=== PATIENT | female | born 1995 | race Two or more races ===

== ENCOUNTER 2025-07-18 16:12 | Emergency (ER) | payer OTHER ==
[~2025-07-18] VITALS: Ht 167.6 cm; Wt 44.5 kg
--- NOTE | 2025-07-18 16:50 | ED.PDOC ---
Musculoskeletal HPI Comments A 30 YEAR OLD FEMALE PRESENTS TO THE ED WITH COMPLAINT OF RIGHT SHOULDER PAIN. 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 PATIENT REPORTS SHE IS NOW EXPERIENCING RIGHT SHOULDER PAIN THAT IS WORSE WITH MOVEMENT. PATIENT DENIES FEVER, CHILLS, SHORTNESS OF BREATH, CHEST PAIN, ABDOMINAL PAIN, NAUSEA, VOMITING, HEADACHE, OR OTHER COMPLAINTS. NO OTHER SYMPTOMS OR MODIFYING FACTORS AT THIS TIME. PATIENT IS ALERT, ORIENTED X 4, AND HAS STEADY GAIT. Chief Complaint: Upper Extremity Time Seen by MD: 16:23 Reviewed Notes: Nurses Notes, Medications, Allergies Allergies: Coded Allergies: NO KNOWN ALLERGIES (Unverified , 07/18/25) Information Source: Patient Mode of Arrival: Ambulatory Location: Right Extremity Location: Shoulder Timing: Hours Prehospital treatment: None Severity: Moderate Able to Move Extremity: Yes Bear Weight: Fully Pain: Moderate Mechanism: Lifting Onset of Symptoms: After Exercise Symptoms: Pain DVT Risk Factors: NONE Last Tetanus: Unknown Associated signs and symptoms: Shoulder pain Past Medical History PAST MEDICAL HISTORY: Denies Surgical History: Denies all surgeries 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 Family History Family History: Reviewed,noncontributory to illness Social History Smoker: Non-Smoker Alcohol: Denies ETOH Use Drugs: Denies Drug Use Lives In: Home Constitutional: denies: chills, diaphoresis, fatigue, fever, malaise, sweats, weakness, others EENTM: denies: blurred vision, double vision, ear bleeding, ear discharge, ear drainage, ear pain, ear ringing, eye pain, eye redness, hearing loss, mouth pain, mouth swelling, nasal discharge, nose bleeding, nose congestion, nose pain, photophobia, tearing, throat pain, throat swelling, voice changes, others Respiratory: denies: cough, hemoptysis, orthopnea, SOB at rest, shortness of breath, SOB with excertion, stridor, wheezing, others Cardiovascular: denies: chest pain, dizzy spells, diaphoresis, Dyspnea on exertion, edema, irregular heart beat, left arm pain, lightheadedness, palpitations, PND, syncope, others Gastrointestinal: denies: abdomen distended, abdominal pain, blood streaked bowels, constipated, diarrhea, dysphagia, difficulty swallowing, hematemesis, melena, nausea, poor appetite, poor fluid intake, rectal bleeding, rectal pain, vomiting, others Genitourinary: denies: abnormal vagina bleeding, burning, dyspareunia, dysuria, flank pain, frequency, hematuria, incontinence, pain, , vagina discharge, urgency, others Neurological: denies: dizziness, fainting, headache, left sided numbness, left sided weakness, numbness, paresthesia, pre-existing deficit, right sided numbness, right sided weakness, seizure, speech problems, tingling, tremors, wea kness, others Musculoskeletal: reports: joint pain, muscle pain, others (RIGHT SHOULDER PAIN); denies: back pain, gout, joint swelling, muscle stiffness, neck pain Integumetry: denies: bruises, change in color, change in hair/nails, dryness, laceration, lesions, lumps, rash, wounds, others Allergic/Immunocompromised: denies: Difficulty Healing, Frequent Infections, Hives, Itching, others Hematologic/Lymphatic: denies: anemia, blood clots, easy bleeding, easy bruising, swollen glands, others Endocrine: denies: excessive hunger, excessive sweating, excessive thirst, excessive urination, flushing, intolerance to cold, intolerance to heat, unexplained weight gain, unexplained weight loss, others Psychiatric: denies: anxiety, bipolar disorder, depression, hopeless, panic disorder, schizophrenia, sleepless, suicidal, others All Other Systems: Reviewed and Negative Physical Exam General Appearance: No Apparent Distress, Normal HEENT: Normal ENT Inspection, PERRL/EOMI, Pharynx Normal, TMs Normal Neck: Full Range of Motion, Non-Tender, Normal, Normal Inspection Respiratory: Chest Non-Tender, Lungs Clear, No Accessory Muscle Use, No Respiratory Distress, Normal Breath Sounds Cardiovascular: No Edema, No JVD, No Murmur, No Gallop, Normal Peripheral Pulses, Regular Rate/Rhythm Breast Exam: Deferred Gastrointestinal: No Organomegaly, Non Tender, No Pulsatile Mass, Normal Bowel Sounds, Soft Genitalia: Deferred Pelvic: Deferred Rectal: Deferred Extremities: Decreased range of motion (SLIGHTLY), No calf tenderness, Normal capillary refill, Normal inspection, No pedal edema, Tender (ON RIGHT SHOULDER, NO BONY TENDERNESS, SWELLING AND DEFORMITY. ) Musculoskeletal : Apperance: Normal Neurologic: Alert, differential specialist II-XII nml as Tested, No Motor Deficits, Normal Affect, Normal Mood, No Sensory Deficits Cerebellar Function: Normal Reflexes: Normal Skin: Dry, Normal Color, Warm Peripheral Pulses: 2+ carotid (R), 2+ carotid (L), 2+ dorsalis pedis (R), 2+ dorsalis pedis (L) Lymphatic: No Adenopathy Was a procedure done? Was a procedure done?: No Differential Diagnosis EXT Differential Diagnosis: Fracture, Sprain, Dislocation, Contusion, Strain, Bursitis X-Ray, Labs, Meds, VS Vital Signs Date Time Temp Pulse Resp B/P (MAP) Pulse Ox O2 Delivery O2 Flow Rate FiO2 07/18/25 16:19 98.1 77 16 117/69 97 98.1 Current Medications Medications (Trade) Dose Ordered Sig/[place] Route Start Time Stop Time Status Last Admin Acetaminophen (Tylenol Tablet Or Capsule) 1,000 mg ONCE ONCE PO 07/18/25 17:00 07/18/25 17:01 DC 07/18/25 17:10 CLINICAL INDICATION: PAIN POST LIFTING TECHNIQUE: 4 view XY R SHOULDER 2+ VIEW XRAY Comparison: None FINDINGS/IMPRESSION: : There is no evidence of acute fracture or dislocation. Soft tissues are unremarkable. ATED BY: MAX LEONARDO MD DICTATED DATE/TIME: 07/18/251700 SIGNED BY: MAX LEONARDO MD SIGNED DATE/TIME: 07/18/251700 CC: X-Ray, Labs, Meds, VS Comment EXTERNAL MEDICAL RECORDS REVIEWED: [NONE] INDEPENDENT HISTORIANS: [NONE] SOCIAL DETERMINANTS OF HEALTH: [NONE] LABS ORDERED: NONE REVIEWED AND INTERPRETED RESULTS: NONE IMAGING ORDERED: XR SHOULDER RT TREATMENTS ORDERED: TYLENOL 1G PO PROCEDURES PERFORMED: NONE CRITICAL CARE TIME: NONE I HAVE DISCUSSED THE PATIENT WITH THE ATTENDING PHYSICIAN DR. HILL AND HE AGREES WITH THE PATIENT'S PLAN OF CARE AND DISPOSITION. BASED ON HISTORY OF PRESENT ILLNESS, AND PHYSICAL EXAM, PATIENT WILL BE DISCHARGED HOME. DISCUSSED PLAN FOR DISCHARGE HOME WITH RX [TYLENOL 650MG]. MEDICATION WARNINGS GIVEN. SHARED DECISION MAKING: DISCUSSED WITH PATIENT THAT THEIR WORKUP WAS NORMAL. PATIENT INSTRUCTED TO FOLLOW UP WITH PRIMARY CARE PROVIDER IN 1-2 DAYS FOR RE- EVALUATION OF SYMPTOMS. PATIENT VERBALIZES UNDERSTANDING TO RETURN TO ED FOR NEW OR WORSENING SYMPTOMS OR IF FOLLOW UP WITH PCP CANNOT BE OBTAINED. PATIENT FEELS COMFORTABLE GOING HOME AT THIS TIME. ALL QUESTIONS ADDRESSED AT TIME OF DISCHARGE. Images Reviewed?: Images reviewed and evaluated by me Time of 1ST Reevaluation: 17:14 Reevaluation 1ST: Improved Patient Education/Counseling: Diagnosis, Treatment, Need For Follow Up Family Education/Counseling: Diagnosis, Treatment, Need For Follow Up Medical Screening: No EMC Exist At This Time Departure 1 Departure Time of Disposition: 17:14 Impression: Primary Impression: Muscle strain of right shoulder Qualified Codes: S46.911A - Strain of unspecified muscle, fascia and tendon at shoulder and upper arm level, right arm, initial encounter Disposition: HOME / SELF CARE / HOMELESS Condition: Stable Additional Instructions: FOLLOW-UP WITH PCP IN 1 TO 2 DAYS. TAKE MEDICATIONS PRESCRIBED. RETURN TO ED FOR ANY NEW OR WORSENING SYMPTOMS. e-Prescriptions Acetaminophen (Tylenol Extra Strength Fo) 500 Mg Tab 650 MG PO TID, #30 TAB Prov: GRAY HATCH 07/18/25 Discharged With: Self, Relative Critical Care Note Critical Care Time?: No Stability Stability form required: No I personally scribed for GRAY HATCH ([email or web address]) on 07/18/25 at 16:50. Electronically submitted by Ming Ignacio ([employer]). I personally scribed for GRAY HATCH ([email or web address]) on 07/18/25 at 16:59. Electronically submitted by Ming Ignacio ([employer]). I personally scribed for GRAY HATCH ([email or web address]) on 07/18/25 at 17:08. Electronically submitted by Ming Ignacio ([employer]). GRAY HATCH Jul 18, 2025 16:50
--- NOTE | 2025-07-18 17:03 | DVH ---
CLINICAL INDICATION: PAIN POST LIFTING TECHNIQUE: 4 view XY R SHOULDER 2+ VIEW XRAY Comparison: None FINDINGS/IMPRESSION: : There is no evidence of acute fracture or dislocation. Soft tissues are unremarkable.
[2025-07-18] MEDS: ACETAMINOPHEN 500 MG TAB or CAP PO ONE (17:10)
[2025-07-18] MEDS ORDERED: ACET-1304 PO (17:15)
[2025-07-18 17:24] VITALS: BP 120/71; PULSE 74; RESP 16; TEMP 97.8; O2SAT 97
== END 2025-07-18 17:21 | disposition home or self-care (01) ==
LOC: ER 16:12
DX: S46.811A Strain of other muscles, fascia and tendons at shoulder and upper arm level, right arm, initial encounter (principal); X50.9XXA Other and unspecified overexertion or strenuous movements or postures, initial encounter; Y93.89 Activity, other specified; Y92.89 Other specified places as the place of occurrence of the external cause; Y99.8 Other external cause status
CPT/HCPCS: 73030

== ENCOUNTER 2025-10-24 14:17 | Emergency (ER) | payer MEDICAID, OTHER ==
[~2025-10-24] VITALS: Ht 165.1 cm; Wt 46.3 kg
[~2025-10-24 14:17] MED LIST: ACET-1304 PO
--- NOTE | 2025-10-24 15:16 | ED.PDOC ---
[place] trauma (HPI) HPI Comments A 30 YEAR OLD FEMALE PRESENTS TO THE ED WITH COMPLAINT OF LOWER BACK PAIN AND NECK PAIN STATUS POST FALL. PATIENT STATES SHE WAS WALKING UP THE STAIRS AND WORK 2 DAYS AGO AND SHE ACCIDENTALLY SLIPPED ON WATER THAT WAS AT THE TOP OF THE STAIRS CAUSING HER TO FALL BACKWARDS. PATIENT REPORTS SHE HAS BEEN EXPERIENCING LOWER BACK PAIN AND NECK PAIN IN HIS WORSE WITH MOVEMENT. PATIENT DENIES HEAD INJURY, LOC, SADDLE ANESTHESIA, URINARY INCONTINENCE, BOWEL INCONTINENCE, FEVER, CHILLS, SHORTNESS OF BREATH, CHEST PAIN, ABDOMINAL PAIN, NAUSEA, VOMITING, HEADACHE, OR OTHER COMPLAINTS. NO OTHER SYMPTOMS OR MODIFYING FACTORS AT THIS TIME. PATIENT IS ALERT, ORIENTED X 4, AND HAS STEADY GAIT. Chief Complaint: Fall Injury Time Seen by MD: 15:02 Reviewed notes: Nurses Notes, Medications, Allergies Allergies: Coded Allergies: NO KNOWN ALLERGIES (Unverified , 07/18/25) Home Meds Active Scripts Acetaminophen (Tylenol Extra Strength Fo) 500 Mg Tab, 650 MG PO TID, #30 TAB Prov:GRAY HATCH 07/18/25 Information Source: Patient Mode of Arrival: Ambulatory Severity: Moderate Timing: Days Duration: Since onset, Days Prehospital treatment: None Location: Back, Neck Location of neck pain: (R) Posterior, (L) Posterior Location of laceration: None Mechanism: Fall Associated signs and symtoms: None Past Medical History PAST MEDICAL HISTORY: Denies Surgical History: Denies all surgeries 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 Family History Family History: Reviewed,noncontributory to illness Social History Smoker: Non-Smoker Alcohol: Denies ETOH Use Drugs: Denies Drug Use Lives In: Home Constitutional: denies: chills, diaphoresis, fatigue, fever, malaise, sweats, weakness, others EENTM: denies: blurred vision, double vision, ear bleeding, ear discharge, ear drainage, ear pain, ear ringing, eye pain, eye redness, hearing loss, mouth pain, mouth swelling, nasal discharge, nose bleeding, nose congestion, nose pain, photophobia, tearing, throat pain, throat swelling, voice changes, others Respiratory: denies: cough, hemoptysis, orthopnea, SOB at rest, shortness of breath, SOB with excertion, stridor, wheezing, others Cardiovascular: denies: chest pain, dizzy spells, diaphoresis, Dyspnea on exertion, edema, irregular heart beat, left arm pain, lightheadedness, palpitations, PND, syncope, others Gastrointestinal: denies: abdomen distended, abdominal pain, blood streaked bowels, constipated, diarrhea, dysphagia, difficulty swallowing, hematemesis, melena, nausea, poor appetite, poor fluid intake, rectal bleeding, rectal pain, vomiting, others Genitourinary: denies: abnormal vagina bleeding, burning, dyspareunia, dysuria, flank pain, frequency, hematuria, incontinence, pain, , vagina discharge, urgency, others Neurological: denies: dizziness, fainting, headache, left sided numbness, left sided weakness, numbness, paresthesia, pre-existing deficit, right sided numbness, right sided weakness, seizure, speech problems, tingling, tremors, weakness, others Musculoskeletal: reports: back pain, muscle pain, neck pain; denies: gout, joint pain, joint swelling, muscle stiffness, others Integumetry: denies: bruises, change in color, change in hair/nails, dryness, laceration, lesions, lumps, rash, wounds, others Allergic/Immunocompromised: denies: Difficulty Healing, Frequent Infections, Hives, Itching, others Hematologic/Lymphatic: denies: anemia, blood clots, easy bleeding, easy bruis ing, swollen glands, others Endocrine: denies: excessive hunger, excessive sweating, excessive thirst, exc essive urination, flushing, intolerance to cold, intolerance to heat, unexplained weight gain, unexplained weight loss, others Psychiatric: denies: anxiety, bipolar disorder, depression, hopeless, panic disorder, schizophrenia, sleepless, suicidal, others All Other Systems: Reviewed and Negative Physical Exam General Appearance: No Apparent Distress, Normal HEENT: Normal ENT Inspection, PERRL/EOMI, Pharynx Normal, TMs Normal Neck: Full Range of Motion, Normal Inspection, Supple, Tender Lateral (TENDERNESS AND MUSCLE SPASM ON POSTERIOR NECK, NO BONY TENDERNESS, SWELLING AND DEFORMITY. ) Respiratory: Chest Non-Tender, Lungs Clear, No Accessory Muscle Use, No Respiratory Distress, Normal Breath Sounds Cardiovascular: No Edema, No JVD, No Murmur, No Gallop, Normal Peripheral Pulses, Regular Rate/Rhythm Breast Exam: Deferred Gastrointestinal: No Organomegaly, Non Tender, No Pulsatile Mass, Normal Bowel Sounds, Soft Genitalia: Deferred Pelvic: Deferred Rectal: Deferred Extremities: No calf tenderness, Normal capillary refill, Normal inspection, Normal range of motion, Non-tender, No pedal edema Musculoskeletal : Location: Bilateral Extremity Location: Back Apperance: Tenderness (MUSCLE SPASM ON LOW BACK, NO BONY TENDERNESS, SWELLING AND DEFORMITY. ) Neurologic: Alert, environmental safety specialist II-XII nml as Tested, No Motor Deficits, Normal Affect, Normal Mood, No Sensory Deficits Cerebellar Function: Normal Reflexes: Normal Skin: Dry, Normal Color, Warm Peripheral Pulses: 2+ carotid (R), 2+ carotid (L) Lymphatic: No Adenopathy Was a procedure done? Was a procedure done?: No Differential Diagnosis Multiple Trauma: Fractures, Contusion, Other (LOW BACK STRAIN) Neck Injury: Cervical Muscle Spasm, Cervical Sprain, Cervical Strain, Cervical Fracture X-Ray, Labs, Meds, VS Vital Signs Date Time Temp Pulse Resp B/P (MAP) Pulse Ox O2 Delivery O2 Flow Rate FiO2 10/24/25 14:19 98.0 75 18 90/62 98 98.0 ORDERING PHYSICIAN: GRAY HATCH PROCEDURE(s): LUMB2 - LUMBAR SPINE 3 VIEW REASON: FALL ORDER NUMBER(s): [id number], ACCESSION NUMBER(s): [id number] X-ray lumbar spine Technique: AP and lateral INDICATION: FALL FINDINGS: No fractures or dislocations. No spondylolisthesis IMPRESSION: 1. No acute bony pathology ATED BY: MAX ROMO MD DICTATED DATE/TIME: 10/24/25 1608 SIGNED BY: MAX ROMO MD SIGNED DATE/TIME: 10/24/25 1608 CC: ORDERING PHYSICIAN: GRAY HATCH PROCEDURE(s): CERV2 - CERVICAL SPINE 3V REASON: FALL ORDER NUMBER(s): [id number], ACCESSION NUMBER(s): [id number] X-ray cervical spine Technique: AP lateral and open-mouth views INDICATION: FALL FINDINGS: No fractures or dislocations. No spondylolisthesis IMPRESSION: 1. No acute bony pathology ATED BY: MAX ROMO MD DICTATED DATE/TIME: 10/24/251608 SIGNED BY: MAX ROMO MD SIGNED DATE/TIME: 10/24/251608 CC: X-Ray, Labs, Meds, VS Comment EXTERNAL MEDICAL RECORDS REVIEWED: [NONE] INDEPENDENT HISTORIANS: [NONE] SOCIAL DETERMINANTS OF HEALTH: [NONE] LABS ORDERED: NONE REVIEWED AND INTERPRETED RESULTS: NONE IMAGING ORDERED: XR C-SPINE, XR L-SPINE TREATMENTS ORDERED: PROCEDURES PERFORMED: NONE CRITICAL CARE TIME: NONE I HAVE DISCUSSED THE PATIENT WITH THE ATTENDING PHYSICIAN DR. ALVARADO AND HE AGREES WITH THE PATIENT'S PLAN OF CARE AND DISPOSITION. BASED ON HISTORY OF PRESENT ILLNESS, AND PHYSICAL EXAM, PATIENT WILL BE DISCHARGED HOME. DISCUSSED PLAN FOR DISCHARGE HOME WITH RX []. MEDICATION WARNINGS GIVEN. SHARED DECISION MAKING: DISCUSSED WITH PATIENT THAT THEIR WORKUP WAS NORMAL. PATIENT INSTRUCTED TO FOLLOW UP WITH PRIMARY CARE PROVIDER IN 1-2 DAYS FOR RE- EVALUATION OF SYMPTOMS. PATIENT VERBALIZES UNDERSTANDING TO RETURN TO ED FOR NEW OR WORSENING SYMPTOMS OR IF FOLLOW UP WITH PCP CANNOT BE OBTAINED. PATIENT FEEL S COMFORTABLE GOING HOME AT THIS TIME. ALL QUESTIONS ADDRESSED AT TIME OF DISCHARGE. Images Reviewed?: Images reviewed and evaluated by me Time of 1ST Reevaluation: 16:24 Reevaluation 1ST: Improved Patient Education/Counseling: Diagnosis, Treatment, Need For Follow Up Family Education/Counseling: Diagnosis, Treatment, Need For Follow Up Medical Screening: No EMC Exist At This Time Departure 1 Departure Time of Disposition: 16:24 Impression: Primary Impression: Cervical muscle strain Qualified Codes: S16.1XXA - Strain of muscle, fascia and tendon at neck level, initial encounter Additional Impressions: Low back strain Qualified Codes: S39.012A - Strain of muscle, fascia and tendon of lower back, initial encounter Status post fall Disposition: 01 HOME / SELF CARE / HOMELESS Condition: Stable Additional Instructions: FOLLOW-UP WITH [facility] IN 1-2 DAYS. TAKE MEDICATIONS PRESCRIBED. RETURN TO ED FOR ANY NEW OR WORSENING SYMPTOMS. e-Prescriptions Methocarbamol (Methocarbamol) 500 Mg Tab 500 MG PO BID, #20 TAB Prov: GRAY HATCH 10/24/25 Naproxen (Naproxen) 500 Mg Tab 500 MG PO BID, #30 TAB Prov: GRAY HATCH 10/24/25 Discharged With: Self Critical Care Note Critical Care Time?: No Stability Stability form required: No I personally scribed for GRAY HATCH ([email or web address]) on 10/24/25 at 15:16. Electronically submitted by Ming Ignacio ([employer]). I personally scribed for GRAY HATCH ([email or web address]) on 10/24/25 at 16:15. Electronically submitted by Ming Ignacio ([employer]). I personally scribed for GRAY HATCH ([email or web address]) on 10/24/25 at 16:16. Electronically submitted by Ming Ignacio ([employer]). GRAY HATCH Oct 24, 2025 15:16
[2025-10-24 15:20] VITALS: BP 90/62; PULSE 75; RESP 18; TEMP 98; O2SAT 98
--- NOTE | 2025-10-24 16:10 | DVH ---
X-ray lumbar spine Technique: AP and lateral INDICATION: FALL FINDINGS: No fractures or dislocations. No spondylolisthesis IMPRESSION: 1. No acute bony pathology
--- NOTE | 2025-10-24 16:11 | DVH ---
X-ray cervical spine Technique: AP lateral and open-mouth views INDICATION: FALL FINDINGS: No fractures or dislocations. No spondylolisthesis IMPRESSION: 1. No acute bony pathology
[2025-10-24] MEDS ORDERED: NAPR-746 PO (16:26)
[2025-10-24] MEDS ORDERED: METH-1181 PO (16:26)
== END 2025-10-24 16:49 | disposition home or self-care (01) ==
LOC: ER 14:17
DX: S39.012A Strain of muscle, fascia and tendon of lower back, initial encounter (principal); S16.1XXA Strain of muscle, fascia and tendon at neck level, initial encounter; W10.9XXA Fall (on) (from) unspecified stairs and steps, initial encounter; Y93.89 Activity, other specified; Y92.89 Other specified places as the place of occurrence of the external cause; Y99.8 Other external cause status
CPT/HCPCS: 72040; 72100